=== PATIENT | male | born 1955 | race Caucasian/White ===

== ENCOUNTER → 2016-10-08 | Outpatient (CLI) | payer OTHER, MEDICARE ==
[~2016-10-08] VITALS: Ht 180.3 cm; Wt 98.9 kg
[~2016-10-08] MED LIST: ALBU17IN2 INH; ATEN50TA2 PO; ATENOLOL 50 MG TAB As Ordered ONE; ATENOLOL 50 MG TAB PO ONE; HYDR5TAB59 PO; LISI40TAB PO; METF500T PO; NS 1,000 ML IV SCH; PROPOFOL 200 MG/20 ML VIAL As Ordered ONE; SIMETHICONE 40MG/0.6ML DROPS 30ML As Ordered ONE; SIMV80TA PO
--- NOTE | 2016-10-08 07:51 | ROOR ---
Patient Name: Pete Singh Procedure Date: 10/08/2016 7:18 AM Date of : 1955 Age: 61 Room: [facility] Gender: Male Note Status: Finalized Procedure: Colonoscopy to Cecum + Cold Snare Polypectomy Indications: High risk colon cancer surveillance: Personal history of colonic polyps, Last colonoscopy: 2011 Providers: Didier Matos MD Referring MD: Lucero Fernández NP Requesting Provider: Medicines: Monitored Anesthesia Care Complications: No immediate complications. Procedure: Pre-Anesthesia Assessment: - The heart rate, respiratory rate, oxygen saturations, blood pressure, adequacy of pulmonary ventilation, and response to care were monitored throughout the procedure. The Colonoscope was introduced through the anus and advanced to the cecum, identified by appendiceal orifice and ileocecal valve. The colonoscopy was performed without difficulty. The patient tolerated the procedure well. The quality of the bowel preparation was good. Findings: The perianal and digital rectal examinations were normal. Non-bleeding internal hemorrhoids were found during retroflexion. The hemorrhoids were small and Grade I (internal hemorrhoids that do not prolapse). Multiple small and large-mouthed diverticula were found in the recto-sigmoid colon, sigmoid colon and descending colon. A small polyp was found at 20 cm proximal to the anus. The polyp was sessile. The polyp was removed with a cold snare. Resection and retrieval were complete. The exam was otherwise without abnormality on direct and retroflexion views. Impression: - Non-bleeding internal hemorrhoids. - Diverticulosis in the recto-sigmoid colon, in the sigmoid colon and in the descending colon. - One small polyp at 20 cm proximal to the anus, removed with a cold snare. Resected and retrieved. - The examination was otherwise normal on direct and retroflexion views. - The exam was otherwise normal to the cecum. Recommendation: - Patient has a contact number available for emergencies. The signs and symptoms of potential delayed complications were discussed with the patient. Return to normal activities tomorrow. Written discharge instructions were provided to the patient. - High fiber diet. - Discharge patient to home. - Continue present medications. - Await pathology results. - Telephone GI clinic for pathology results in 1 week. - Repeat colonoscopy in 5 years for surveillance based on pathology results. - Return to referring physician. - The findings and recommendations were discussed with the patient's family. Didier Matos MD Didier Matos MD 10/08/2016 7:51:25 AM This report has been signed electronically. Number of Addenda: 0 Note Initiated On: 10/08/2016 7:18 AM Estimated Blood Loss: Estimated blood loss: none.
[2016-10-08 08:00] VITALS: BP 130/74
[2016-10-08 08:15] VITALS: BP 144/73
== END ==
LOC: M OPP 06:42
PROVIDERS: ATTEND Internal Medicine Gastroenterology
DX: Z12.11 Encounter for screening for malignant neoplasm of colon (principal); Z86.010 Personal history of colon polyps; D12.6 Benign neoplasm of colon, unspecified; K64.0 First degree hemorrhoids; K57.30 Diverticulosis of large intestine without perforation or abscess without bleeding; R10.9 Unspecified abdominal pain; I10 Essential (primary) hypertension; E78.00 Pure hypercholesterolemia, unspecified; E11.9 Type 2 diabetes mellitus without complications; K21.9 Gastro-esophageal reflux disease without esophagitis; J45.909 Unspecified asthma, uncomplicated; Z79.84 Long term (current) use of oral hypoglycemic drugs; Z79.899 Other long term (current) drug therapy; Z88.5 Allergy status to narcotic agent

== ENCOUNTER → 2017-07-22 | Outpatient (CLI) | payer OTHER, MEDICARE ==
[~2017-07-22] MED LIST changes: -ATENOLOL 50 MG TAB As Ordered ONE; -ATENOLOL 50 MG TAB PO ONE; -METF500T PO; +METF500T13 PO; -NS 1,000 ML IV SCH; -PROPOFOL 200 MG/20 ML VIAL As Ordered ONE; -SIMETHICONE 40MG/0.6ML DROPS 30ML As Ordered ONE
[2017-07-22 09:47] LABS: ALBUMIN 3.8 GM/DL (3.2-5.2); ALBUMIN/GLOBULIN RATIO 1.12 (1.00-1.93); ALKALINE PHOSPHATASE 105 U/L (45-117); ALT/SGPT 32 U/L (12-78); ANION GAP 8 MEQ/L (8-16); AST/SGOT 15 U/L (7-37); BILIRUBIN,TOTAL 0.5 MG/DL (0.2-1.0); BLOOD UREA NITROGEN 16 MG/DL (7-18); CALCIUM LEVEL 8.8 MG/DL (8.8-10.2); CARBON DIOXIDE LEVEL 29 MEQ/L (21-32); CHLORIDE LEVEL 104 MEQ/L (98-107); CHOLESTEROL LEVEL 174 MG/DL (<200); CREATININE FOR GFR 0.82 MG/DL (0.70-1.30); GLOMERULAR FILTRATION RATE > 60.0 (>49); GLUCOSE, FASTING 281 MG/DL (80-110); SODIUM LEVEL 141 MEQ/L (136-145); TOTAL PROTEIN 7.2 GM/DL (6.4-8.2); TRIGLYCERIDES LEVEL 414 MG/DL (<150)
== END ==
LOC: M WUC 08:04
PROVIDERS: ATTEND Nurse Practitioner Family
DX: E11.9 Type 2 diabetes mellitus without complications (principal)

== ENCOUNTER → 2017-12-22 | Outpatient (CLI) | payer MEDICARE, OTHER ==
[2017-12-22 13:29] LABS: ALBUMIN 3.7 GM/DL (3.2-5.2); ALBUMIN/GLOBULIN RATIO 1.06 (1.00-1.93); ALKALINE PHOSPHATASE 103 U/L (45-117); ALT/SGPT 32 U/L (12-78); ANION GAP 8 MEQ/L (8-16); AST/SGOT 18 U/L (7-37); BILIRUBIN,TOTAL 0.4 MG/DL (0.2-1.0); BLOOD UREA NITROGEN 18 MG/DL (7-18); CALCIUM LEVEL 8.8 MG/DL (8.8-10.2); CARBON DIOXIDE LEVEL 26 MEQ/L (21-32); CHLORIDE LEVEL 106 MEQ/L (98-107); CREATININE FOR GFR 0.73 MG/DL (0.70-1.30); GLOMERULAR FILTRATION RATE > 60.0 (>49); GLUCOSE, FASTING 215 MG/DL (70-100); SODIUM LEVEL 140 MEQ/L (136-145); TOTAL PROTEIN 7.2 GM/DL (6.4-8.2)
[2017-12-22 13:38] LABS: POTASSIUM SERUM 5.3 MEQ/L (3.5-5.1)
[2017-12-22 13:55] LABS: ESTIMATED AVERAGE GLUCOSE 206 MG/DL (60-110); HEMOGLOBIN A1c 8.8 %
== END ==
LOC: M WUC 08:31
DX: E11.9 Type 2 diabetes mellitus without complications (principal)
CPT/HCPCS: 80053

== ENCOUNTER → 2018-03-23 | Outpatient (CLI) | payer MEDICARE, OTHER ==
[2018-03-23 09:31] LABS: ESTIMATED AVERAGE GLUCOSE 186 MG/DL (60-110); HEMOGLOBIN A1c 8.1 %
[2018-03-23 09:39] LABS: ANION GAP 6 MEQ/L (8-16); BLOOD UREA NITROGEN 19 MG/DL (7-18); CALCIUM LEVEL 8.9 MG/DL (8.8-10.2); CARBON DIOXIDE LEVEL 29 MEQ/L (21-32); CHLORIDE LEVEL 107 MEQ/L (98-107); GLOMERULAR FILTRATION RATE > 60.0 (>49); GLUCOSE, FASTING 203 MG/DL (70-100); SODIUM LEVEL 142 MEQ/L (136-145)
[2018-03-23 09:40] LABS: POTASSIUM SERUM 5.4 MEQ/L (3.5-5.1)
[2018-03-23 09:50] LABS: TESTOSTERONE 229 NG/DL (241-827)
== END ==
LOC: M WUC 08:11
DX: E11.9 Type 2 diabetes mellitus without complications (principal)
CPT/HCPCS: 84403

== ENCOUNTER → 2018-06-30 | Outpatient (CLI) | payer MEDICARE, OTHER ==
[2018-06-30 10:04] LABS: ALBUMIN 3.6 GM/DL (3.2-5.2); ALBUMIN/GLOBULIN RATIO 1.24 (1.00-1.93); ALKALINE PHOSPHATASE 104 U/L (45-117); ALT/SGPT 38 U/L (12-78); ANION GAP 7 MEQ/L (8-16); AST/SGOT 13 U/L (7-37); BILIRUBIN,TOTAL 0.4 MG/DL (0.2-1.0); BLOOD UREA NITROGEN 16 MG/DL (7-18); CALCIUM LEVEL 8.5 MG/DL (8.8-10.2); CARBON DIOXIDE LEVEL 27 MEQ/L (21-32); CHLORIDE LEVEL 106 MEQ/L (98-107); CHOLESTEROL LEVEL 118 MG/DL (<200); CHOLESTEROL RISK RATIO 3.687 (<5); CREATININE FOR GFR 0.78 MG/DL (0.70-1.30); GLOMERULAR FILTRATION RATE > 60.0 (>49); GLUCOSE, FASTING 158 MG/DL (70-100); HDL CHOLESTEROL 32 MG/DL (>40); LDL CHOLESTEROL 61 MG/DL (<100); NON-HDL-C 86 MG/DL; POTASSIUM SERUM 4.8 MEQ/L (3.5-5.1); SODIUM LEVEL 140 MEQ/L (136-145); TOTAL PROTEIN 6.5 GM/DL (6.4-8.2); TRIGLYCERIDES LEVEL 124 MG/DL (<150)
[2018-06-30 10:24] LABS: ESTIMATED AVERAGE GLUCOSE 163 MG/DL (60-110); HEMOGLOBIN A1c 7.3 %
[2018-07-01 14:20] LABS: PSA TOTAL 0.6 ng/mL (0.0-4.0)
== END ==
LOC: M WUC 08:12
DX: I10 Essential (primary) hypertension (principal); R97.20 Elevated prostate specific antigen [PSA]; E78.2 Mixed hyperlipidemia; E11.9 Type 2 diabetes mellitus without complications
CPT/HCPCS: 80053

== ENCOUNTER → 2018-07-29 | Outpatient (CLI) | payer MEDICARE, OTHER ==
[~2018-07-29] MED LIST changes: +LISI40TA PO; -LISI40TAB PO; -SIMV80TA PO; +SIMV80TA13 PO
--- NOTE | 2018-07-29 11:01 | REP ---
Clinical: Neck pain radiating to the left upper extremity. Technique: AP, lateral, open-mouth, and swimmer's views of the cervical spine. Findings: Advanced degenerative disc osteophyte complexes are appreciated primarily involving C5-6 and C6-7 with osteophytosis and near complete disc space obliteration. Early advanced degenerative spondylosis also noted at the C4-5 level with anterior osteophyte formation, endplate sclerosis and minimal disc space narrowing. There is no evidence for acute fracture / compression injury or subluxation. C1-C2 articulation and odontoid process are intact. Impression: Spondylosis primarily involving C4-C7. Electronically Signed by Vinny Wood MD 07/29/2018 10:52 A
== END ==
LOC: M RAD 09:49
PROVIDERS: ATTEND Nurse Practitioner Family
DX: M47.892 Other spondylosis, cervical region (principal)

== ENCOUNTER → 2018-10-11 | Outpatient (CLI) | payer MEDICARE, OTHER ==
[2018-10-11 10:10] LABS: HEMATOCRIT 50.2 % (42.0-52.0); HEMOGLOBIN 16.5 g/dl (13.5-17.5); MEAN CORPUSCULAR HEMOGLOBIN 28.9 pg (27.0-33.0); MEAN CORPUSCULAR HGB CONC 32.9 g/dl (32.0-36.5); MEAN CORPUSCULAR VOLUME 88.1 fl (80.0-96.0); PLATELET COUNT, AUTOMATED 245 10^3/uL (150-450); WHITE BLOOD COUNT 11.1 10^3/uL (4.0-10.0)
[2018-10-11 10:45] LABS: CHOLESTEROL RISK RATIO 4.916 (<5)
[2018-10-11 10:55] LABS: PROLACTIN 6.5 NG/ML (2.1-17.7)
[2018-10-11 10:56] LABS: LUTEINIZING HORMONE 4.4 mIU/mL (1.5-9.3)
[2018-10-11 10:57] LABS: ESTRADIOL 21.4 PG/ML (<39.8)
[2018-10-11 10:58] LABS: FOLLICLE STIMULATING HORMONE 8.4 mIU/mL (1.4-18.1)
[2018-10-13 00:07] LABS: SEX HORMONE BINDING GLOBULIN 28.3 nmol/L (19.3-76.4); TESTOSTERONE FREE (DIRECT) 5.1 pg/mL (6.6-18.1)
== END ==
LOC: M WUC 08:03
PROVIDERS: ATTEND Nurse Practitioner Family
DX: E29.1 Testicular hypofunction (principal); Z79.899 Other long term (current) drug therapy

== ENCOUNTER → 2018-10-19 | Outpatient (CLI) | payer MEDICARE, OTHER ==
[2018-10-19 12:50] LABS: HEMOGLOBIN A1c 8.9 %
[2018-10-19 13:20] LABS: ALBUMIN 4.3 GM/DL (3.2-5.2); BILIRUBIN,TOTAL 0.5 MG/DL (0.2-1.0); CALCIUM LEVEL 9.8 MG/DL (8.8-10.2); CREATININE FOR GFR 1.49 MG/DL (0.70-1.30); GLOMERULAR FILTRATION RATE 50.9 (>49); POTASSIUM SERUM 6.1 MEQ/L (3.5-5.1); TOTAL PROTEIN 8.3 GM/DL (6.4-8.2)
== END ==
LOC: M WUC 08:26
PROVIDERS: ATTEND Nurse Practitioner Family
DX: E11.9 Type 2 diabetes mellitus without complications (principal)

== ENCOUNTER → 2018-12-03 | Outpatient (CLI) | payer MEDICARE, OTHER ==
[~2018-12-03] MED LIST changes: +HYDR-4327 PO; -HYDR5TAB59 PO
[2018-12-03 10:02] LABS: FOLLICLE STIMULATING HORMONE 17.3 mIU/mL (1.4-18.1); LUTEINIZING HORMONE 17.9 mIU/mL (1.5-9.3)
[2018-12-05 00:06] LABS: TESTOSTERONE FREE (DIRECT) 8.1 pg/mL (6.6-18.1)
== END ==
LOC: M WUC 08:19
PROVIDERS: ATTEND Nurse Practitioner Family
DX: E29.1 Testicular hypofunction (principal)

== ENCOUNTER → 2019-02-08 | Outpatient (CLI) | payer MEDICARE, OTHER ==
[2019-02-08 09:57] LABS: ALBUMIN 3.7 GM/DL (3.2-5.2); ALT/SGPT 33 U/L (12-78); BILIRUBIN,TOTAL 0.3 MG/DL (0.2-1.0); BLOOD UREA NITROGEN 20 MG/DL (7-18); CARBON DIOXIDE LEVEL 28 MEQ/L (21-32); CHLORIDE LEVEL 112 MEQ/L (98-107); CREATININE FOR GFR 1.05 MG/DL (0.70-1.30); GLOMERULAR FILTRATION RATE > 60.0 (>49); GLUCOSE, FASTING 152 MG/DL (70-100); POTASSIUM SERUM 4.9 MEQ/L (3.5-5.1); SODIUM LEVEL 135 MEQ/L (136-145); TOTAL PROTEIN 6.9 GM/DL (6.4-8.2)
[2019-02-08 10:20] LABS: HEMOGLOBIN A1c 7.4 %
== END ==
LOC: M WUC 08:18
PROVIDERS: ATTEND Nurse Practitioner Family
DX: E11.9 Type 2 diabetes mellitus without complications (principal); I10 Essential (primary) hypertension

== ENCOUNTER → 2019-06-16 | Outpatient (CLI) | payer MEDICARE, OTHER ==
[2019-06-16 10:17] LABS: ALBUMIN 3.6 GM/DL (3.2-5.2); ALT/SGPT 43 U/L (12-78); BILIRUBIN,TOTAL 0.3 MG/DL (0.2-1.0); BLOOD UREA NITROGEN 15 MG/DL (7-18); CALCIUM LEVEL 8.9 MG/DL (8.8-10.2); CARBON DIOXIDE LEVEL 29 MEQ/L (21-32); CHLORIDE LEVEL 106 MEQ/L (98-107); CHOLESTEROL LEVEL 148 MG/DL (<200); CHOLESTEROL RISK RATIO 4.111 (<5); CREATININE FOR GFR 0.93 MG/DL (0.70-1.30); GLOMERULAR FILTRATION RATE > 60.0 (>49); GLUCOSE, FASTING 184 MG/DL (70-100); HDL CHOLESTEROL 36 MG/DL (>40); LDL CHOLESTEROL 75 MG/DL (<100); NON-HDL-C 112 MG/DL; POTASSIUM SERUM 5.1 MEQ/L (3.5-5.1); PROSTATIC SPECIFIC AG MONITOR 0.87 NG/ML (< 4.00); SODIUM LEVEL 141 MEQ/L (136-145); TOTAL PROTEIN 6.7 GM/DL (6.4-8.2); TRIGLYCERIDES LEVEL 184 MG/DL (<150); URIC ACID 6.4 MG/DL (3.5-7.2)
[2019-06-16 10:18] LABS: HEMOGLOBIN A1c 6.8 %
== END ==
LOC: M WUC 08:03
PROVIDERS: ATTEND Nurse Practitioner Family
DX: E11.9 Type 2 diabetes mellitus without complications (principal); M10.9 Gout, unspecified; E78.2 Mixed hyperlipidemia; Z12.5 Encounter for screening for malignant neoplasm of prostate

== ENCOUNTER → 2019-07-22 | Outpatient (CLI) | payer OTHER, MEDICARE ==
--- NOTE | 2019-07-22 17:51 | ECGEPIP ---
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
== END ==
LOC: M EKG 08:57
PROVIDERS: ATTEND Orthopaedic Surgery
DX: Z01.810 Encounter for preprocedural cardiovascular examination (principal); R00.1 Bradycardia, unspecified

== ENCOUNTER 2019-08-16 06:37 | Emergency (ER) | payer MEDICARE, OTHER ==
[~2019-08-16] VITALS: Ht 180.3 cm; Wt 99.1 kg
[2019-08-16] MEDS ORDERED: OMEP10CASR PO (07:00)
[2019-08-16] MEDS ORDERED: GLIP5TAB8 PO (07:00)
[2019-08-16] MEDS ORDERED: HYDR-3715 PO (07:00)
[2019-08-16] MEDS ORDERED: ACETAMINOPHEN 500 MG TAB PO ONE (07:45)
[2019-08-16 07:59] LABS: HEMATOCRIT 45.1 % (42.0-52.0); HEMOGLOBIN 14.9 g/dl (13.5-17.5); MEAN CORPUSCULAR VOLUME 90.9 fl (80.0-96.0); PLATELET COUNT, AUTOMATED 263 10^3/uL (150-450); RED BLOOD COUNT 4.96 10^6/uL (4.30-6.10); WHITE BLOOD COUNT 11.2 10^3/uL (4.0-10.0)
[2019-08-16 08:22] LABS: ALBUMIN 3.2 GM/DL (3.2-5.2); ALT/SGPT 30 U/L (12-78); BILIRUBIN,TOTAL 0.3 MG/DL (0.2-1.0); BLOOD UREA NITROGEN 16 MG/DL (7-18); CALCIUM LEVEL 8.7 MG/DL (8.8-10.2); CARBON DIOXIDE LEVEL 25 MEQ/L (21-32); CHLORIDE LEVEL 105 MEQ/L (98-107); CREATININE FOR GFR 0.75 MG/DL (0.70-1.30); GLOMERULAR FILTRATION RATE > 60.0 (>49); GLUCOSE, FASTING 192 MG/DL (70-100); POTASSIUM SERUM 4.7 MEQ/L (3.5-5.1); SODIUM LEVEL 137 MEQ/L (136-145); TOTAL PROTEIN 7.1 GM/DL (6.4-8.2)
[2019-08-16] MEDS ORDERED: LISI40TA PO (10:07)
[2019-08-16] MEDS ORDERED: ATEN50TA2 PO (10:07)
[2019-08-16 10:15] VITALS: BP 160/80
--- NOTE | 2019-08-17 10:00 | ECGEPIP ---
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
== END 2019-08-16 10:25 | disposition home or self-care (01) ==
LOC: M ED 06:37
DX: I10 Essential (primary) hypertension (principal); E11.9 Type 2 diabetes mellitus without complications; E78.9 Disorder of lipoprotein metabolism, unspecified; Z79.899 Other long term (current) drug therapy; Z79.84 Long term (current) use of oral hypoglycemic drugs; Z88.5 Allergy status to narcotic agent

== ENCOUNTER → 2019-09-15 | Outpatient (CLI) | payer MEDICARE, OTHER ==
[~2019-09-15] MED LIST changes: +GLIP5TAB8 PO; +HYDR-3715 PO; +OMEP10CASR PO
--- NOTE | 2019-09-15 08:53 | REP ---
Clinical: Abdominal pain. Technique: Real time jimenez scale ultrasound examination using curved array transducer. Findings: Liver is diffusely increased echogenicity with poor through transmission suggesting fatty infiltration. Evaluation for subtle hepatic lesions is severely limited. The pancreas is incompletely evaluated. The gallbladder is normal and without gallstones, wall thickening, or pericholecystic fluid. No biliary ductal dilatation is appreciated and the common bile duct measures 5.1 mm diameter. The right kidney is normal in reniform shape without hydronephrosis and measures 15.6 x 6.7 x 5.8 cm. No ascites in the visualized right upper quadrant. Impression: 1. Significant hepatic steatosis limiting evaluation of the liver. 2. Otherwise grossly unremarkable right upper quadrant ultrasound. Electronically Signed by Vinny Wood MD 09/15/2019 08:44 A
== END ==
LOC: M RAD 07:58
PROVIDERS: ATTEND Internal Medicine Gastroenterology
DX: R10.9 Unspecified abdominal pain (principal)

== ENCOUNTER → 2019-10-14 | Outpatient (CLI) | payer MEDICARE, OTHER ==
[2019-10-16 00:08] LABS: TESTOSTERONE FREE (DIRECT) 7.2 pg/mL (6.6-18.1)
== END ==
LOC: M WUC 08:06
PROVIDERS: ATTEND Urology
DX: E29.1 Testicular hypofunction (principal)

== ENCOUNTER → 2020-11-09 | Outpatient (CLI) | payer MEDICARE, OTHER ==
[~2020-11-09] MED LIST changes: -HYDR-4327 PO; +HYDR-4467 PO; -LISI40TA PO; +LISI40TA4 PO
--- NOTE | 2020-11-09 17:06 | REP ---
INDICATION: PAIN COMPARISON: None. TECHNIQUE: Four views right wrist. FINDINGS: No acute fracture is seen. There is widening of the scapholunate interval up to 5 mm consistent with a scapholunate ligament tear. There is mild narrowing and subchondral sclerosis at the radiocarpal joint. Benign appearing cyst is seen in the scaphoid measuring approximately 5 mm in diameter. IMPRESSION: No fracture or dislocation. There is widening of the scapholunate interval up to 5 mm consistent with a scapholunate ligament tear. Mild arthritic changes. <Electronically signed by Tyshawn Delgado > 11/09/20 [id number]
--- NOTE | 2020-11-09 17:11 | REP ---
INDICATION: PAIN COMPARISON: None. TECHNIQUE: Four views right hand. FINDINGS: No acute fracture or dislocation is seen. I suspect an old healed fracture of the proximal 1st metacarpal and distal 5th metacarpal. There is mild radiocarpal joint space narrowing with subchondral sclerosis. There is widening of the scapholunate interval consistent with scapholunate ligament tear. A benign 5 mm cyst is seen in the scaphoid. There is mild diffuse narrowing of the metacarpophalangeal joints with mild spurring of the heads of the 3rd through 5th metacarpals. There is mild subchondral cystic changes in the heads of the 2nd through 5th metacarpals. There is moderate spurring of the base of the 2nd distal phalanx. IMPRESSION: Arthritic changes. Widening of the scapholunate interval consistent with scapholunate ligament tear. <Electronically signed by Tyshawn Delgado > 11/09/20 [id number]
== END ==
LOC: M WUC 13:56
PROVIDERS: ATTEND Physician Assistant
DX: M25.541 Pain in joints of right hand (principal); M25.531 Pain in right wrist

== ENCOUNTER 2024-04-08 08:52 | Day surgery (SDC) | payer MEDICARE, OTHER ==
[~2024-04-08] VITALS: Ht 180.3 cm; Wt 88.6 kg
[~2024-04-08 08:52] MED LIST changes: +GLIP5TAB17 PO; -GLIP5TAB8 PO; +JARD1TAB PO; +METF-1191 PO; +VENTAER INH
[2024-04-08] MEDS: LR 1,000 ML IV SCH (09:37)
[2024-04-08] MEDS ORDERED: propofoL 200 MG/20 ML VIAL As Ordered ONE (09:50)
[2024-04-08] MEDS ORDERED: LIDOCAINE 2% 100MG/5ML SDV (FOR ANES.) As Ordered ONE (09:51)
[2024-04-08] MEDS ORDERED: ONDANSETRON 4MG 2ML VIAL As Ordered ONE (10:42)
[2024-04-08] MEDS ORDERED: PHENYLEPHRINE 0.5% NASAL SPRAY 15 ML As Ordered ONE (10:51)
[2024-04-08] MEDS ORDERED: MIDAZOLAM INJ 2MG/2ML VIAL As Ordered ONE (10:56)
[2024-04-08] MEDS ORDERED: hydrALAZINE 20MG/ML 1ML VIAL As Ordered ONE (11:00)
[2024-04-08] MEDS: CIPRODEX OTIC SUSP 7.5ML As Ordered ONE (11:17)
[2024-04-08] MEDS ORDERED: ONDANSETRON 4MG 2ML VIAL IV PRN (11:35)
[2024-04-08] MEDS ORDERED: LR 1,000 ML IV SCH (11:35)
[2024-04-08] MEDS ORDERED: fentaNYL 100 MCG/2 ML INJECTION IV PRN (11:35)
[2024-04-08] MEDS ORDERED: HYDROMORPHONE HCL 0.5 MG/ 0.5 ML SYRINGE IV PRN (11:35)
[2024-04-08] MEDS ORDERED: LABETALOL 100MG/20ML VIAL As Ordered ONE (11:43)
[2024-04-08 12:11] VITALS: BP 183/92
[2024-04-08] MEDS: hydrALAZINE 20MG/ML 1ML VIAL IV PRN (12:11)
[2024-04-08 12:45] VITALS: BP 170/80; TEMP 97.7; O2SAT 95
[2024-04-08] MEDS ORDERED: ROCURONIUM BROMIDE 50MG/5ML VIAL As Ordered ONE (12:51)
[2024-04-08] MEDS ORDERED: PHENYLephrine 500MCG 5ML (100MCG/ML) SYRINGE As Ordered ONE (14:49)
[2024-04-08] MEDS ORDERED: ePHEDrine SULFATE 25 MG/5 ML(5MG/ML) SYRINGE As Ordered ONE (14:49)
== END 2024-04-08 13:10 | disposition home or self-care (01) ==
LOC: M SDC 08:52
PROVIDERS: ATTEND Otolaryngology
DX: H65.23 Chronic serous otitis media, bilateral (principal); H90.8 Mixed conductive and sensorineural hearing loss, unspecified; E11.9 Type 2 diabetes mellitus without complications; I10 Essential (primary) hypertension; E78.00 Pure hypercholesterolemia, unspecified; J45.909 Unspecified asthma, uncomplicated; Z79.899 Other long term (current) drug therapy; Z79.84 Long term (current) use of oral hypoglycemic drugs; K21.9 Gastro-esophageal reflux disease without esophagitis; Z90.49 Acquired absence of other specified parts of digestive tract; Z90.89 Acquired absence of other organs; Z88.5 Allergy status to narcotic agent
CPT/HCPCS: 69436; J0360; J1100; J1920; J2250; J2371; J2405

== ENCOUNTER → 2025-04-04 | Outpatient (CLI) | payer MEDICARE, OTHER ==
[~2025-04-04] MED LIST changes: +LISI40TA10 PO; -LISI40TA4 PO
== END ==
LOC: M RAD 10:15
PROVIDERS: ATTEND Physician Assistant
DX: M79.662 Pain in left lower leg (principal)

== ENCOUNTER → 2025-04-20 | Outpatient (CLI) | payer MEDICARE, OTHER ==
[2025-04-20 15:00] LABS: PLATELET COUNT, AUTOMATED 306 10^3/uL (150-450)
[2025-04-20 15:07] LABS: ERYTHROCYTE SEDIMENTATION RATE 33 mm/hr (0-20)
[2025-04-20 17:39] LABS: BASO # 0.1 10^3/uL (0.0-0.2); BASO % 0.5 % (0.0-1.0); EOS # 0.1 10^3/uL (0.0-0.5); EOS % 0.8 % (0.0-3.0); LYMPH # 2.8 10^3/uL (1.5-5.0); LYMPH % 18.9 % (24.0-44.0); MONO # 1.2 10^3/uL (0.0-0.8); MONO % 8.3 % (2.0-8.0); NEUTROPHILS # 10.3 10^3/uL (1.5-8.5); NEUTROPHILS % 70.8 % (36.0-66.0)
== END ==
LOC: M WUC 09:31
PROVIDERS: ATTEND Family Medicine
DX: M25.561 Pain in right knee (principal); R70.0 Elevated erythrocyte sedimentation rate

== ENCOUNTER → 2025-04-27 | Outpatient (CLI) | payer MEDICARE, OTHER | LOC: M WUC 10:43 | PROVIDERS: ATTEND Family Medicine | DX: M25.561 Pain in right knee (principal); R70.0 Elevated erythrocyte sedimentation rate ==

== ENCOUNTER → 2025-06-01 | Outpatient (REF) | payer MEDICARE, OTHER | LOC: M LAB REF 17:11 | PROVIDERS: ATTEND Podiatrist | DX: L03.039 Cellulitis of unspecified toe (principal) ==